=== PATIENT | male | born 1950 | race Caucasian/White ===

== ENCOUNTER → 2016-09-18 | Outpatient (CLI) | payer OTHER | LOC: CIMAGING 15:26 | PROVIDERS: ATTEND Family Medicine | DX: R10.9 Unspecified abdominal pain (principal); R11.0 Nausea; R93.2 Abnormal findings on diagnostic imaging of liver and biliary tract | CPT/HCPCS: 76705-PO ==

== ENCOUNTER 2016-09-30 05:38 | Day surgery (SDC) | payer OTHER ==
[2016-09-30] MEDS ORDERED: LIDOCAINE 1% 2 ML INJ ONE (06:13)
[2016-09-30] MEDS ORDERED: BUPIVACAINE/EPI 0.25% 30 ML SDV ONE (06:20)
--- NOTE | 2016-09-30 06:36 | PDHPUP ---
History & Physical Update H&P update statement: This history and physical update is based on an assessment of the patient which was completed after admission or registration (within 24 hours), but prior to the surgery/procedure. H&P update: H&P reviewed & patient examined, no change in patient's condition since H&P completed
[2016-09-30] MEDS ORDERED: CLINDAMYCIN 900 MG/DEXTROSE 50 ML IV ONE (06:46)
[2016-09-30] MEDS ORDERED: LIDOCAINE 1% 2 ML INJ ID PRN (06:47)
[2016-09-30] MEDS ORDERED: LR 1,000 ML IV ONE (06:47)
[2016-09-30] MEDS ORDERED: MIDAZOLAM 2 MG/2 ML VIAL IVP ONE (06:54)
--- NOTE | 2016-09-30 06:56 | PDANEPAE ---
ANE History of Present Illness RUQ pain ANE Past Medical History - Cardiovascular History Hx Hypertension: Yes Hx Arrhythmias: No Hx Chest Pain: No Hx Coronary Artery / Peripheral Vascular Disease: No Hx CHF / Valvular Disease: No Hx Palpitations: No - Pulmonary History Hx COPD: No Hx Asthma/Reactive Airway Disease: No Hx Recent Upper Respiratory Infection: No Hx Oxygen in Use at Home: No Hx Sleep Apnea: No Sleep Apnea Screening Result - Last Documented: Positive Pulmonary History Comment: quit 35 years ago - Neurologic History Hx Cerebrovascular Accident: No Hx Seizures: No Hx Dementia: No - Endocrine History Hx Diabetes: No Hypothyroid: Yes Endocrine History Comment: hypothyroid - Renal History Hx Renal Disorders: No - Liver History Hx Hepatic Disorders: No - Neurological & Psychiatric Hx Hx Neurological and Psychiatric Disorders: No - Cancer History Hx Cancer: No - Congenital Disorder History Hx Congenital Disorders: No - GI History Hx Gastrointestinal Disorders: Yes Gastrointestinal History Comment: gall bladder, indigestion - Other Health History Other Health History: restless leg syndrome - Chronic Pain History Chronic Pain: No - Surgical History Prior Surgeries: left knee scopes, colonoscopy, hemmoroidectomy ANE Review of Systems - Exercise capacity METS (RN): 6 METS ANE Patient History - Allergies Allergies/Adverse Reactions: Penicillins Allergy (Verified 09/30/16 05:51) Rash - Home Medications Home Medications: Aspirin 81mg (*) 09/30/16 [Last Taken 09/28/16] Glucosamine & Chondroitin Cap 09/30/16 [Last Taken 09/29/16 06:30] Levothyroxine 09/30/16 [Last Taken 08/30/16 07:00] Lisinopril 09/30/16 [Last Taken 09/29/16 06:30] Mirapex 09/30/16 [Last Taken 09/29/16 06:30] Prilosec 20 mg 09/30/16 [Last Taken 09/29/16 06:30] Zofran Odt 09/30/16 [Last Taken 09/29/16 22:30] - NPO status NPO Since - Liquids (Date): 09/29/16 NPO Since - Liquids (Time): 22:45 NPO Since - Solids (Date): 09/29/16 NPO Since - Solids (Time): 19:00 - Smoking Hx Smoking Status: Former smoker ANE Labs/Vital Signs - Vital Signs Blood Pressure: 144/80 Heart Rate: 81 Respiratory Rate: 16 O2 Sat (%): 98 Height: 177.8 cm Weight: 83.915 kg
[2016-09-30] MEDS ORDERED: IOTHALAMATE MEG (CONRAY) 50 ML VIAL IV ONE (06:59)
[2016-09-30] MEDS ORDERED: fentaNYL 100 MCG/2 ML INJ ONE (07:18)
[2016-09-30] MEDS ORDERED: PROPOFOL/EMULSION 500 MG/50 ML BOTTLE IV ONE (07:18)
[2016-09-30] MEDS ORDERED: REMIFENTANIL HCL 1 MG VIAL ONE (07:18)
[2016-09-30] MEDS ORDERED: ROCURONIUM 50 MG/5 ML VIAL ONE (07:19)
[2016-09-30] MEDS ORDERED: DEXAMETHASONE 4 MG/ML VIAL ONE (07:19)
[2016-09-30] MEDS ORDERED: ONDANSETRON 4 MG/2 ML VIAL ONE (07:20)
[2016-09-30] MEDS ORDERED: RANITIDINE 50 MG/2 ML VIAL ONE (07:20)
[2016-09-30] MEDS ORDERED: LIDOCAINE 2% 5 ML SDV ONE (07:21)
[2016-09-30] MEDS ORDERED: epHEDrine SULFATE 10 MG/ML SYR ONE ×2 (07:48)
[2016-09-30] MEDS ORDERED: fentaNYL 100 MCG/2 ML INJ IVP PRN ×2 (08:06)
[2016-09-30] MEDS ORDERED: D5W LR 500 ML IV PRN (08:06)
[2016-09-30] MEDS ORDERED: PROMETHAZINE HCL 25 MG/ML INJ IVP PRN (08:06)
[2016-09-30] MEDS ORDERED: HYDROCODONE/APAP 5/325 TAB PO PRN (08:06)
[2016-09-30] MEDS ORDERED: ONDANSETRON 4 MG/2 ML VIAL IVP PRN (08:06)
[2016-09-30] MEDS ORDERED: NALOXONE HCL 0.4 MG/ML INJ IVP PRN (08:06)
[2016-09-30] MEDS ORDERED: OXYCODONE/APAP 5/325 TAB PO PRN (08:06)
[2016-09-30] MEDS ORDERED: LABETALOL HCL 50 MG/10 ML SYR IVP PRN (08:06)
[2016-09-30] MEDS ORDERED: ACETAMINOPHEN 500 MG TAB PO PRN (08:06)
[2016-09-30] MEDS ORDERED: KETOROLAC 30 MG/1 ML SDV ONE (08:22)
[2016-09-30] MEDS ORDERED: NEOSTIGMINE METHYLSULFATE 5 MG/5 ML SYR ONE (08:34)
[2016-09-30] MEDS ORDERED: GLYCOPYRROLATE 0.2 MG/1 ML VIAL ONE ×3 (08:38→08:40)
--- NOTE | 2016-09-30 08:48 | POSTOPPROG ---
Post Op Note Date of Operation: 09/30/16 Surgeon: Hussein Levy [place] Former: Donnie Paul MD Anesthesiologist: Jerry Anesthesia: GET(General Endotracheal) Pre-op Diagnosis: Cholecystitis, umbilical hernia Post-op Diagnosis: same Procedure: lap arnaldo, IOC. Primary repair of umbilical hernia Findings: Adhesions, critical view obtained. IOC: no filling defects Inf/Abcess present in the surg proc area at time of surgery?: No EBL: Minimal Specimen(s): gallbag
--- NOTE | 2016-09-30 09:35 | POSTANESTH ---
Post Anesthetic Evaluation Cardiovascular Status: Normal, Stable Respiratory Status: Normal, Stable Level of Consciousness/Mental Status: Can Participate in Eval Pain Control: Adequate, Prn Tx Ordered Nausea/Vomiting Control: Adequate, Prn Tx Ordered Complications Possibly Related to Anesthesia: None Noted
[2016-09-30 09:54] VITALS: RESP 14
[2016-09-30 10:23] VITALS: BP 161/91; PULSE 75; TEMP 97.9; O2SAT 93
--- NOTE | 2016-09-30 11:27 | GOP ---
[f rep st] OPERATIVE REPORT DATE OF OPERATION: 09/30/2016 SURGEON: Hussein Levy MD DRY ROLLER: Rito Paul MD, who was requested for timely completion of the case ANESTHESIA: General endotracheal. ANESTHESIOLOGIST: Hanna Edwards DO PREOPERATIVE DIAGNOSIS: 1. Acute cholecystitis. 2. Umbilical hernia. POSTOPERATIVE DIAGNOSIS: 1. Acute cholecystitis. 2. Umbilical hernia. PROCEDURE PERFORMED: 1. Laparoscopic cholecystectomy with intraoperative cholangiogram. 2. Primary repair of umbilical hernia. FINDINGS: Multiple adhesions to the gallbladder wall with a thickened edematous gallbladder wall. Critical view was obtained. Intraoperative cholangiogram showed no filling defects and brisk spillage of bile into the duodenum. Primary umbilical hernia measuring approximately 2 cm, repaired primarily with 0 Nurolon sutures. SPECIMENS: Gallbladder. ESTIMATED BLOOD LOSS: 5 cc. DESCRIPTION OF PROCEDURE: The patient was greeted in the preoperative suite. Once again, risks, benefits, and alternatives were discussed. Consent was signed. He was then brought back to the operative suite, placed on the OR table in supine position. After all anesthesia machines, including SCDs, were on and functioning, [employer] time-out was performed. General endotracheal anesthesia was then induced without incident. The patient's abdomen was then prepped and draped in typical sterile fashion. I entered the abdomen via a curvilinear incision just inferior to the umbilicus, where I identified the patient's umbilical defect. Through this, I inserted the 12 mm trocar and achieved insufflation to 15 mmHg, which was well tolerated by the patient. I then inserted 3 additional 5 mm trocars; 1 in the subxiphoid, 2 in the right upper quadrant, all under direct visualization. I grasped the base of the gallbladder and retracted it over the dome of the liver using a combination of blunt dissection and electrocautery. I successfully took down the fatty adhesions to the gallbladder wall. Once the infundibulum was exposed , I grasped it and retracted laterally. After gentle dissection, I identified 2 , and only 2, structures leading toward the gallbladder consisting of my critical view. I then divided the cystic artery after clipping it, 2 proximally , 1 distally. Using the Sammy cholangiocatheter, I then placed it over the infundibulum of the gallbladder and successfully performed an intraoperative cholangiogram, which showed brisk filling of all the bile duct radicals and good spillage into the duodenum without any filling defects. Once this was performed, I removed the catheter. I divided the duct after clipping it, 2 proximally, 1 distally, and removed the gallbladder off the liver bed using electrocautery. It was then removed using an EndoCatch bag. Hemostasis was noted to be excellent. I then irrigated the right upper quadrant with 1 L normal saline, noting clear effluent in the suction canister. I then infiltrated local anesthesia into all the 5 mm port sites, which were removed under direct visualization. I then desufflated the patient's abdomen. I turned my attention toward closing the umbilical defect, which was done with multiple interrupted 0 Nurolon sutures, noting excellent fascial reapproximation. The umbilical stalk was then reapproximated. The skin was closed with running 4-0 Monocryl over which Dermabond was placed. The patient was then extubated in the operative suite and taken to the PACU in satisfactory condition. DRAINS: None. COUNTS: All counts were reported as correct x2. /[id number]/MODL MTDD
== END 2016-09-30 10:20 | disposition home or self-care (01) ==
LOC: FSGY 05:38
PROVIDERS: ATTEND Surgery
PROC: 0WQF0ZZ Repair Abdominal Wall, Open Approach (ICD-10-PCS; principal; 2016-09-30 07:15)
PROC: 0FT44ZZ Resection of Gallbladder, Percutaneous Endoscopic Approach (ICD-10-PCS; principal; 2016-09-30 07:15)
DX: K81.0 Acute cholecystitis (principal); K42.9 Umbilical hernia without obstruction or gangrene; I10 Essential (primary) hypertension; K21.9 Gastro-esophageal reflux disease without esophagitis; E03.9 Hypothyroidism, unspecified; Z79.82 Long term (current) use of aspirin; Z88.0 Allergy status to penicillin; Z87.891 Personal history of nicotine dependence
CPT/HCPCS: J1100; J1885; J2250; J2405; J2704; J2710; J2780; J3010; Q9961

== ENCOUNTER → 2017-07-04 | Outpatient (CLI) | payer OTHER, MEDICARE | LOC: CIMAGING 10:04 | PROVIDERS: ATTEND Family Medicine | DX: K76.0 Fatty (change of) liver, not elsewhere classified (principal); Z90.49 Acquired absence of other specified parts of digestive tract | CPT/HCPCS: 76705-PO; 85025-PO ==